=== PATIENT | female | born 1945 | race Caucasian/White ===

== ENCOUNTER 2024-06-17 14:26 | Emergency (ER) | payer MEDICARE, OTHER ==
[~2024-06-17] VITALS: Ht 165.1 cm; Wt 60.8 kg
[~2024-06-17 14:26] MED LIST: ATORVASTATIN CA40 MG PO; AUGMENTIN 875-1 EACH PO; AZITHROMYCIN250 MG PO; CEFTIN250 MG PO; EFFEXOR XR150 MG PO; EFFEXOR XR37.5 MG PO; FELDENE10 MG PO; FLAGYL250 MG PO; FUROSEMIDE20 MG; GLUCOPHAGE XR500 MG PO; HYDROCHLOROTH12.5 M1 PO; HYDROCODON-ACE1 EAC8 PO; LEVOTHROID100 MCG PO; LEVOTHYROXINE112 MCG PO; LEVOTHYROXINE125 MCG PO; LIDODERM700 MG TOP; LISINOPRIL10 MG PO; LORAZEPAM1 MG; LORAZEPAM1 MG PO; LORTAB 7.5-3251 EACH PO; OMEPRAZOLE20 M1 PO; PREDNISONE20 MG PO; ROBAXIN-750750 MG PO; TESSALON PERLE100 MG PO; TRAMADOL HCL50 MG PO; TRENTAL400 MG PO; TYLENOL325 MG PO; VENLAFAXINE HC150 MG PO; VITAMIN D350000 UNIT PO; ZOFRAN4 MG PO
[2024-06-17] MEDS ORDERED: AMLODIPINE BESYL5 MG PO (14:41)
[2024-06-17 14:57] LABS: HEMOGLOBIN 12.4 g/dL (12.0-18.0); MCH 32.6 (27-36); RBC 3.82 M/ul (4.3-5.7)
[2024-06-17 15:00] LABS: BASOPHILS 1.2 % (0-2); HEMATOCRIT 37.4 % (35.0-50.0); LYMPHOCYTES 14.6 % (24-44); MCHC 33.2 g/dl (30-36); NEUTROPHILS 72.2 % (39-80); PLATELET COUNT 262 K/uL (140-440); RDW 13.6 (10.5-15.0)
[2024-06-17] MEDS ORDERED: ALBUTEROL/IPRATROPIUM 3 ML NEB INH PRN (15:00)
[2024-06-17 15:22] LABS: ALBUMIN 3.2 g/dL (3.4-5.0); ALBUMIN/GLOBULIN RATIO 0.78 (1.1-2.4); ANION GAP 18.5 (7-21); BILIRUBIN, TOTAL 0.9 ng/dL (0.2-1.0); BUN/CREATININE RATIO 12.76 (6.0-28.6); CALCIUM 9.7 mg/dL (8.5-10.1); CREATININE, SERUM 1.88 mg/dL (0.55-1.02); MAGNESIUM 1.4 mg/dL (1.8-2.4); POTASSIUM 4.5 mmol/L (3.5-5.1); PROTEIN, TOTAL 7.3 g/dL (6.4-8.2)
[2024-06-17] MEDS ORDERED: methylPREDNISolone SOD SUCC 125 MG/2 ML VIAL IV ONE (15:30)
[2024-06-17] MEDS ORDERED: ALBUTEROL SULFATE 0.5% 2.5 MG/0.5 ML VIAL INH ONE (15:45)
[2024-06-17] MEDS ORDERED: PREDNISONE20 MG PO (16:56)
[2024-06-17] MEDS ORDERED: ALBUTEROL SULFATE 8 GM HOME.PACK INH ONE (17:00)
[2024-06-17] MEDS ORDERED: INHALER, ASSIST DEVICES 1 EACH SPACER MISC ONE (17:00)
[2024-06-17] MEDS ORDERED: IPRAT-ALBUT 0.5-3 ML INH (17:09)
[2024-06-17 17:19] VITALS: BP 105/78
--- NOTE | 2024-06-18 21:15 | EKG ---
[facility] [address] [place], [place] [address] Signed Sinus rhythm with frequent premature ventricular complexes Left axis deviation Low voltage QRS Cannot rule out Anterior infarct , age undetermined Prolonged QT Abnormal ECG No previous ECGs available Confirmed by Jose Mcintyre DO ([id number]) on 06/18/2024 9:14:51 PM Electronically Signed By: JOSE MCINTYRE DO [id number] PATIENT NAME: IRVIN GIL ALISON Electrocardiogram DATE OF : 47 PHYSICIAN: JOSE MCINTYRE DO REPORT #: [id number] REPORT IS CONFIDENTIAL AND NOT TO BE RELEASED WITHOUT AUTHORIZATION
== END 2024-06-17 17:19 | disposition home or self-care (01) ==
LOC: ED 14:26
PROVIDERS: Emergency Medicine
DX: J44.1 Chronic obstructive pulmonary disease with (acute) exacerbation (principal); E11.9 Type 2 diabetes mellitus without complications; E03.9 Hypothyroidism, unspecified; F17.200 Nicotine dependence, unspecified, uncomplicated
CPT/HCPCS: 36415; 71045; 80053; 83735; 84484; 85025; 93005; 93010; 94640; 94664; 96374; 99285-25; 99406; J2919